=== PATIENT | female | born 1985 | race Two or more races ===

== ENCOUNTER 2018-02-28 00:13 | Emergency (ER) | payer MEDICAID ==
[~2018-02-28] VITALS: Ht 170.2 cm; Wt 61.2 kg
[2018-02-28 00:58] VITALS: BP 100/54
== END 2018-02-28 02:52 | disposition home or self-care (01) ==
LOC: ER 00:13
DX: S20.212A Contusion of left front wall of thorax, initial encounter (principal); M54.9 Dorsalgia, unspecified; Y07.03 Male partner, perpetrator of maltreatment and neglect; Y93.89 Activity, other specified; Y99.8 Other external cause status; Y92.89 Other specified places as the place of occurrence of the external cause
CPT/HCPCS: 71046

== ENCOUNTER 2018-03-09 17:45 | Emergency (ER) | payer MEDICAID ==
[~2018-03-09] VITALS: Ht 170.2 cm; Wt 62.1 kg
[2018-03-09 19:26] VITALS: BP 119/61
== END 2018-03-09 19:36 | disposition home or self-care (01) ==
LOC: ER 17:45
DX: S25 Injury of blood vessels of thorax (principal)

== ENCOUNTER 2020-01-16 19:51 | Emergency (ER) | payer MEDICAID, OTHER ==
[~2020-01-16] VITALS: Ht 170.2 cm; Wt 72.1 kg
[2020-01-17] MEDS: methylPREDNISolone SOD SUCC 125 MG/2 ML VL IM ONE (00:52)
[2020-01-17] MEDS: KETOROLAC TROMETH 60MG/2ML VIAL IM ONE (00:53)
[2020-01-17 01:29] VITALS: BP 136/86
== END 2020-01-17 01:44 | disposition home or self-care (01) ==
LOC: ER 19:51
DX: G51.0 Bell's palsy (principal); R51.9 Headache, unspecified; B69.0 Cysticercosis of central nervous system
CPT/HCPCS: 70450; 96372; 99284; J1885; J2930

== ENCOUNTER 2020-01-29 18:31 | Emergency (ER) | payer OTHER ==
[~2020-01-29] VITALS: Ht 170.2 cm; Wt 75.3 kg
[2020-01-29] MEDS ORDERED: KETOROLAC TROMETH 60MG/2ML VIAL IM ONE (21:00)
[2020-01-29] MEDS ORDERED: TETRACAINE HCL 0.5% OPTH(EYE) SOLN 4ML LEFTEYE ONE (21:00)
[2020-01-29] MEDS ORDERED: FLUORESCEIN SOD 1 MG TEST STRIP LEFTEYE ONE (21:00)
[2020-01-29] MEDS ORDERED: methylPREDNISolone SOD SUCC 125 MG/2 ML VL IM ONE (21:00)
[2020-01-29 21:04] VITALS: BP 108/76
== END 2020-01-29 22:31 | disposition home or self-care (01) ==
LOC: ER 18:31
DX: G51.0 Bell's palsy (principal)
CPT/HCPCS: 96372; 99284; J1885; J2930

== ENCOUNTER 2020-02-12 10:54 | Emergency (ER) | payer OTHER ==
[~2020-02-12] VITALS: Ht 170.2 cm; Wt 73.9 kg
[2020-02-12 11:40] VITALS: BP 121/78
[2020-02-12] MEDS ORDERED: TETANUS-DIPTH-ACEL PERTUSSIS 0.5ML SYR Tdap IM ONE (12:30)
== END 2020-02-12 12:55 | disposition home or self-care (01) ==
LOC: ER 10:54
DX: S01.01XA Laceration without foreign body of scalp, initial encounter (principal); W22.8XXA Striking against or struck by other objects, initial encounter; Y93.89 Activity, other specified; Y92.89 Other specified places as the place of occurrence of the external cause; Y99.8 Other external cause status
CPT/HCPCS: 12001; 90471; 90715

== ENCOUNTER 2020-02-26 18:14 | Emergency (ER) | payer OTHER ==
[~2020-02-26] VITALS: Ht 170.2 cm; Wt 75.7 kg
[2020-02-26 20:08] VITALS: BP 122/64
== END 2020-02-26 22:26 | disposition home or self-care (01) ==
LOC: ER 18:14
DX: S01.01XD Laceration without foreign body of scalp, subsequent encounter (principal); U07.1 COVID-19; H66.91 Otitis media, unspecified, right ear; X58.XXXD Exposure to other specified factors, subsequent encounter
CPT/HCPCS: 36415; 71045; 87426

== ENCOUNTER 2021-10-16 13:37 | Emergency (ER) | payer OTHER ==
[~2021-10-16] VITALS: Ht 170.2 cm; Wt 81.8 kg
[2021-10-16 14:06] VITALS: BP 109/47
[2021-10-16] MEDS: KETOROLAC TROMETH 60MG/2ML VIAL IM ONE ×2 (14:33→14:37)
[2021-10-16] MEDS ORDERED: IBUPROFEN 800 MG TAB PO ONE (14:45)
[2021-10-16] MEDS ORDERED: IBUP800T27 PO (14:56)
[2021-10-16] MEDS ORDERED: METH750T22 PO (14:56)
== END 2021-10-16 15:04 | disposition home or self-care (01) ==
LOC: ER 13:37
DX: S39.012A Strain of muscle, fascia and tendon of lower back, initial encounter (principal); Z79.1 Long term (current) use of non-steroidal anti-inflammatories (NSAID); Z79.899 Other long term (current) drug therapy; X50.1XXA Overexertion from prolonged static or awkward postures, initial encounter; Y93.89 Activity, other specified; Y92.89 Other specified places as the place of occurrence of the external cause; Y99.8 Other external cause status
CPT/HCPCS: 72100; 99283; J1885

== ENCOUNTER 2022-03-02 12:50 | Emergency (ER) | payer OTHER ==
[~2022-03-02] VITALS: Ht 170.2 cm; Wt 85.0 kg
[~2022-03-02 12:50] MED LIST: IBUP800T27 PO; METH750T22 PO
[2022-03-02 18:53] VITALS: BP 105/66
[2022-03-02] MEDS ORDERED: IBUP800T27 PO (18:59)
[2022-03-02] MEDS ORDERED: IBUPROFEN 800 MG TAB PO ONE (19:00)
== END 2022-03-02 19:37 | disposition home or self-care (01) ==
LOC: ER 12:50
DX: M54.50 Low back pain, unspecified (principal)

== ENCOUNTER 2022-05-17 09:28 | Emergency (ER) | payer BC, OTHER ==
[~2022-05-17] VITALS: Ht 170.2 cm; Wt 93.3 kg
[2022-05-17 13:26] VITALS: BP 104/67
== END 2022-05-17 13:44 | disposition home or self-care (01) ==
LOC: ER 09:28
DX: K52.9 Noninfective gastroenteritis and colitis, unspecified (principal)

== ENCOUNTER 2022-07-31 10:52 | Emergency (ER) | payer BC, OTHER ==
[~2022-07-31] VITALS: Ht 170.2 cm; Wt 92.4 kg
[~2022-07-31 10:52] MED LIST changes: +IBUP-1456 PO; -IBUP800T27 PO; +METH-1182 PO; -METH750T22 PO
[2022-07-31 11:08] VITALS: BP 109/69
[2022-07-31] MEDS ORDERED: KETOROLAC TROMETH 60MG/2ML VIAL IM ONE (14:00)
[2022-07-31] MEDS ORDERED: ACET500T58 PO (15:42)
[2022-07-31] MEDS ORDERED: ONDA-144 PO (15:42)
[2022-07-31] MEDS ORDERED: IBUP-1455 PO (15:42)
== END 2022-07-31 15:52 | disposition home or self-care (01) ==
LOC: ER 10:52
DX: R51.9 Headache, unspecified (principal)
CPT/HCPCS: 70450; 96372; 99285; J1885